=== PATIENT | male | born 1985 | race Caucasian/White ===

== ENCOUNTER 2021-11-29 21:47 | Emergency (ER) | payer OTHER ==
[2021-11-29 22:11] VITALS: BP_SYST 148
--- NOTE | 2021-11-29 22:16 | NUR ---
PATIENT IS IN THE AND WAS IN PT, PLAYING ULTIMATE FOOTBALL. PATIENT COLLIDED MID-AIR WITH ANOTHER PATIENT AND HAS HAD INCREASING PAIN TO CHEST SINCE THIS OCCURRENCE THREE DAYS AGO.
--- NOTE | 2021-11-30 01:16 | NUR ---
Per rail express clerk, pt LWBS.
== END 2021-11-30 01:16 | disposition left against medical advice (07) ==
LOC: SED 21:47
DX: R07.9 Chest pain, unspecified (principal); Z53.21 Procedure and treatment not carried out due to patient leaving prior to being seen by health care provider
CPT/HCPCS: 71046-TC; 93005